=== PATIENT | female | born 1985 | race Asian ===

== ENCOUNTER 2017-12-29 10:01 | Inpatient (IN) | payer SELFPAY ==
[~2017-12-29] VITALS: Ht 160 cm; Wt 68.0 kg
[2017-12-30] MEDS ORDERED: LACTATED RINGERS 1,000 ML IV SCH (00:59)
[2017-12-30] MEDS ORDERED: CITRIC ACID/SODIUM CITRATE 30 ML UDC PO SCH (01:00)
[2017-12-30 01:16] VITALS: BP 111/81
[2017-12-30 01:30] LABS: BASOPHILS % (AUTO) 0.2 % (0.0-2.0); EOSINOPHILS # (AUTO) 0.1 K/uL (0-0.4); HEMATOCRIT 38.2 % (36-48); HEMOGLOBIN 11.8 g/dL (12.0-16.0); LYMPHOCYTES # (AUTO) 1.9 K/uL (2.5-16.5); LYMPHOCYTES % (AUTO) 25.3 % (20.5-51.1); MEAN CORPUSCULAR HEMOGLOBIN 22 pg (27-31); MEAN CORPUSCULAR HGB CONC 31 g/dL (33-37); MEAN CORPUSCULAR VOLUME 72.4 fL (80-94); MONOCYTES # (AUTO) 0.6 K/uL (0.8-1.0); MONOCYTES % (AUTO) 8.4 % (1.7-9.3); NEUTROPHILS # (AUTO) 4.9 K/uL (1.8-7.7); NEUTROPHILS % (AUTO) 65.1 % (42.2-75.2); PLATELET COUNT (AUTO) 166 K/uL (140-450); RED BLOOD CELL COUNT(AUTO) 5.28 MIL/uL (4.20-5.40); RED CELL DISTRIBUTION WIDTH 14.8 % (11.6-13.7); WHITE BLOOD COUNT (AUTO) 7.5 K/uL (4.8-10.8)
[2017-12-30 02:10] LABS: APPEARANCE,URINE SL CLOUDY (CLEAR); BILIRUBIN,URINE NEGATIVE (NEGATIVE); BLOOD, URINE NEGATIVE (NEGATIVE); COLOR,URINE YELLOW (YELLOW); LEUKOCYTE ESTERASE ,URINE NEGATIVE (NEGATIVE); NITRITE, URINE NEGATIVE (NEGATIVE); UGLUCOSE NEGATIVE (NEGATIVE)
[2017-12-30] MEDS ORDERED: DHA (03:12)
[2017-12-30] MEDS ORDERED: ceFAZolin 1,000 MG VIAL ONE ×2 (05:43→06:00)
[2017-12-30] MEDS ORDERED: CITRIC ACID/SODIUM CITRATE 30 ML UDC ONE (05:43)
[2017-12-30] MEDS ORDERED: BUPIVACAINE-MPF 0.75% 10 ML VIAL INJ ONE (06:00)
[2017-12-30] MEDS ORDERED: ONDANSETRON 4 MG/2 ML VIAL ONE ×2 (06:00→06:48)
[2017-12-30] MEDS ORDERED: ePHEDrine 50 MG/ML VIAL ONE (06:00)
[2017-12-30] MEDS ORDERED: TRIAMCINOLONE 40 MG/ML 5ML VIAL ONE (06:03)
[2017-12-30] MEDS ORDERED: OXYTOCIN 10 UNITS/ML VIAL ONE (06:03)
[2017-12-30] MEDS ORDERED: fentaNYL 0.05 MG/ML VIAL ONE (06:12)
[2017-12-30] MEDS ORDERED: MORPHINE PRES FREE 10 MG/10 ML AMP IV ONE (06:12)
[2017-12-30] MEDS ORDERED: MIDAZOLAM 2 MG/2 ML VIAL ONE (06:12)
[2017-12-30] MEDS ORDERED: KETAMINE 500 MG/5 ML VIAL ONE (06:12)
[2017-12-30] MEDS ORDERED: BUPIVACAINE/DEXT 0.75% SPINAL 2 ML AMP INJ ONE (06:13)
[2017-12-30] MEDS ORDERED: OXYTOCIN 20 UNITS in LACTATED RINGERS 1,000 ML IV SCH (06:22)
[2017-12-30] MEDS ORDERED: MEASLES, MUMPS, AND RUBELLA 1 VIAL SQVAC PRN (06:25)
[2017-12-30] MEDS ORDERED: IBUPROFEN 800 MG TAB PO PRN (06:25)
[2017-12-30] MEDS ORDERED: TRIMETHOBENZAMIDE 200 MG/2 ML SYR IM PRN (06:25)
[2017-12-30] MEDS ORDERED: oxyCODONE/APAP 5/325 MG 1 TAB TAB PO PRN (06:25)
[2017-12-30] MEDS ORDERED: SIMETHICONE 80 MG TAB.CHEW PO PRN (06:25)
[2017-12-30] MEDS ORDERED: METHYLERGONOVINE 0.2 MG/ML AMP IM PRN (06:25)
[2017-12-30] MEDS ORDERED: TEMAZEPAM 15 MG CAP PO PRN (06:25)
[2017-12-30] MEDS ORDERED: diphenhydrAMINE 50 MG/ML VIAL ONE (06:48)
[2017-12-30] MEDS ORDERED: OXYTOCIN 20 UNITS/LR PREMIX 1,000 ML IV ONE ×3 (06:48→23:40)
[2017-12-30] MEDS ORDERED: KETOROLAC 30 MG/ML VIAL IVP PRN (06:50)
[2017-12-30] MEDS ORDERED: diphenhydrAMINE 50 MG/ML VIAL IVP PRN (06:50)
--- NOTE | 2017-12-30 09:20 | NUR ---
PATIENT HAS BEEN SCREENED AND CATEGORIZED LOW NUTRITION RISK. PATIENT WILL BE SEEN WITHIN 7 DAYS OF ADMISSION. 01/05/[address]
[2017-12-30] MEDS ORDERED: ONDANSETRON 4 MG TAB PO PRN (12:05)
[2017-12-30] MEDS ORDERED: ONDANSETRON 4 MG/2 ML VIAL IVP PRN (12:05)
[2017-12-30] MEDS: DOCUSATE SOD/SENNA 50/8.6 MG 1 TAB PO SCH (21:12)
[2017-12-31 06:18] LABS: BASOPHILS % (AUTO) 0.1 % (0.0-2.0); HEMOGLOBIN 9.5 g/dL (12.0-16.0); LYMPHOCYTES # (AUTO) 1.5 K/uL (2.5-16.5); LYMPHOCYTES % (AUTO) 13.1 % (20.5-51.1); MEAN CORPUSCULAR HEMOGLOBIN 23 pg (27-31); MEAN CORPUSCULAR HGB CONC 32 g/dL (33-37); MEAN CORPUSCULAR VOLUME 72.4 fL (80-94); MONOCYTES # (AUTO) 0.7 K/uL (0.8-1.0); MONOCYTES % (AUTO) 5.9 % (1.7-9.3); NEUTROPHILS # (AUTO) 9.4 K/uL (1.8-7.7); NEUTROPHILS % (AUTO) 80.9 % (42.2-75.2); PLATELET COUNT (AUTO) 141 K/uL (140-450); RED BLOOD CELL COUNT(AUTO) 4.15 MIL/uL (4.20-5.40); RED CELL DISTRIBUTION WIDTH 14.6 % (11.6-13.7); WHITE BLOOD COUNT (AUTO) 11.7 K/uL (4.8-10.8)
[2017-12-31] MEDS: HYDROcodone/APAP 5/325 MG 1 TAB TAB PO PRN ×3 (09:24→19:31)
[2018-01-01] MEDS: HYDROcodone/APAP 5/325 MG 1 TAB TAB PO PRN ×2 (03:04→22:13)
[2018-01-01] MEDS: DOCUSATE SOD/SENNA 50/8.6 MG 1 TAB PO SCH (21:38)
[2018-01-02] MEDS: HYDROcodone/APAP 5/325 MG 1 TAB TAB PO PRN (11:16)
== END 2018-01-02 14:30 | disposition home or self-care (01) | DRG 766 ==
LOC: MLD 12-30 00:32 → MFCC 12-30 09:23
PROVIDERS: ADMIT Obstetrics & Gynecology; ATTEND Obstetrics & Gynecology
PROC: 10D00Z1 Extraction of Products of Conception, Low, Open Approach (ICD-10-PCS; principal; 2017-12-30 06:00)
DX: O69.81X0 Labor and delivery complicated by cord around neck, without compression, not applicable or unspecified (principal); Z28.21 Immunization not carried out because of patient refusal; Z37.0 Single live birth; Z3A.38 38 weeks gestation of pregnancy
CPT/HCPCS: 36415; 81003; 85025; 86592; 86886; 86900; 86901; J0690; J1200; J2250; J2270; J2405; J2590; J3010; J3301; J3490; J7060; J7120